=== PATIENT | male | born 1970 | race Caucasian/White ===

== ENCOUNTER 2021-01-11 11:48 | Emergency (ER) | payer OTHER ==
[~2021-01-11 11:48] MED LIST: BACTROBAN CREAM15 GM TOP; BENADRYL 50MG C50 MG PO; BENADRYL25 MG PO; CLEOCIN HCL300 MG PO; PEPCID20 MG PO; PREDNISONE 50 M50 MG PO; PREDNISONE20 MG PO; PREDNISONE50 MG PO; PRINIVIL20 MG PO
== END 2021-01-11 13:35 | disposition home or self-care (01) ==
LOC: ER1 11:48
DX: S46.911A Strain of unspecified muscle, fascia and tendon at shoulder and upper arm level, right arm, initial encounter (principal); I10 Essential (primary) hypertension; F17.210 Nicotine dependence, cigarettes, uncomplicated; V80.010A Animal-rider injured by fall from or being thrown from horse in noncollision accident, initial encounter
CPT/HCPCS: 73030; 99283

== ENCOUNTER → 2021-04-17 | Outpatient (CLI) | payer OTHER | LOC: RAD 14:48 | DX: R05 Cough (principal) | CPT/HCPCS: 71046 ==

== ENCOUNTER → 2021-06-12 | Outpatient (CLI) | payer OTHER ==
[2021-06-12 09:58] LABS: HEMOGLOBIN 14.3 gm/dl (14.0-17.5); RED BLOOD COUNT 4.18 M/UL (4.20-5.50)
[2021-06-12 10:15] LABS: BUN/CREATININE RATIO 9 (0-10); GAMMA GLUTAMYL TRANSPEPTIDASE 180 U/L (7-64)
== END ==
LOC: LAB 09:34
PROVIDERS: Dermatology
DX: K76.9 Liver disease, unspecified (principal); R63.4 Abnormal weight loss; Z79.899 Other long term (current) drug therapy; R53.83 Other fatigue
CPT/HCPCS: 36415; 80053; 82465; 82977; 84478; 85027

== ENCOUNTER 2022-05-04 23:12 | Emergency (ER) | payer OTHER ==
[2022-05-05 00:22] LABS: RED BLOOD COUNT 4.5 M/UL (4.20-5.50); WHITE BLOOD COUNT 6.2 K/UL (4.5-11.0)
[2022-05-05 00:30] LABS: BUN/CREATININE RATIO 7 (0-10)
== END 2022-05-05 00:39 | disposition left against medical advice (07) ==
LOC: ER1 23:12
PROVIDERS: Physician Assistant
DX: G93.89 Other specified disorders of brain (principal); I11.9 Hypertensive heart disease without heart failure; F17.210 Nicotine dependence, cigarettes, uncomplicated; R47.1 Dysarthria and anarthria
CPT/HCPCS: 70450; 71045; 80053; 82550; 82553; 83880; 84484; 85025; 85610; 85730; 93005; 99283

== ENCOUNTER 2022-05-15 15:59 | Emergency (ER) | payer OTHER ==
[2022-05-15 16:49] LABS: HEMOGLOBIN 14.9 gm/dl (14.0-17.5); RED BLOOD COUNT 4.45 M/UL (4.20-5.50); WHITE BLOOD COUNT 6.4 K/UL (4.5-11.0)
[2022-05-15 17:19] LABS: BUN/CREATININE RATIO 13 (0-10)
[2022-05-15] MEDS ORDERED: DECADRON6 MG PO (19:22)
== END 2022-05-15 19:31 | disposition left against medical advice (07) ==
LOC: ER1 15:59
PROVIDERS: Preventive Medicine Occupational Medicine
DX: C34.90 Malignant neoplasm of unspecified part of unspecified bronchus or lung (principal); R51.9 Headache, unspecified; J44.9 Chronic obstructive pulmonary disease, unspecified; I10 Essential (primary) hypertension; F17.200 Nicotine dependence, unspecified, uncomplicated
CPT/HCPCS: 0240U; 36600; 70450; 70460; 71045; 80053; 80307; 82550; 82553; 82803; 83880; 84484; 85025; 85652; 86140; 87040; 93005; 94664; 96374; 99283; G0480; J1100; Q9967